=== PATIENT | female | born 2000 | race Asian ===

== ENCOUNTER → 2024-10-11 | Outpatient (CLI) | payer OTHER ==
[2024-10-16 11:07] LABS: QUANTIFERON+, Nil Value 0.12 IU/mL; QUANTIFERON+,Mitogen Value >10.00 IU/mL; QUANTIFERON+,TB1 Antigen Value 0.13 IU/mL; QUANTIFERON+,TB2 Antigen Value 0.12 IU/mL; QUANTIFERON, TB GOLD PLUS Negative (Negative)
== END | disposition home or self-care (01) ==
LOC: RADMN 08:15
PROVIDERS: ATTEND Internal Medicine
DX: Z86.11 Personal history of tuberculosis (principal)
CPT/HCPCS: 71045; 86480; 36415-L1; 36415-TC